=== PATIENT | female | born 1985 | race African-American/Black ===

== ENCOUNTER 2017-09-25 19:32 | Emergency (ER) | payer MEDICAID ==
[2017-09-25 19:40] VITALS: BP 164/95
--- NOTE | 2017-09-25 19:50 | ER Document Report ---
ED General - General Chief Complaint: Urinary Problem Stated Complaint: URINARY PAIN Time Seen by Provider: 09/25/17 19:46 Notes: 32-year-old female here with complaints of dysuria frequency and discomfort with urination for the past few days. She has not taken anything for the symptoms. She denies any fevers chills back/flank pain nausea vomiting diarrhea abdominal pain. She has a history of UTI several years ago. TRAVEL OUTSIDE OF THE [place] IN LAST 30 DAYS: No - Related Data Allergies/Adverse Reactions: No Known Allergies Allergy (Verified 06/26/15 14:32) Past Medical History - Social History Smoking Status: Unknown if Ever Smoked Family History: Reviewed & Not Pertinent - Immunizations Hx Diphtheria, Pertussis, Tetanus Vaccination: No Review of Systems - Review of Systems Notes: See history of present illness for pertinent positive review of systems; otherwise all review of systems have been reviewed and are negative Physical Exam - Vital signs Vitals: Temp Pulse Resp BP Pulse Ox 98.6 F 74 17 164/95 H 100 09/25/17 19:38 09/25/17 19:38 09/25/17 19:38 09/25/17 19:38 09/25/17 19:38 - Notes Notes: PHYSICAL EXAMINATION: GENERAL: Well-appearing and in no acute distress. HEAD: Atraumatic, normocephalic. EYES: Pupils equal round and reactive to light, extraocular movements intact, sclera anicteric, conjunctiva are normal. ENT: nares patent, oropharynx clear without exudates. Moist mucous membranes. NECK: Normal range of motion, supple without lymphadenopathy LUNGS: CTAB and equal. No wheezes rales or rhonchi. HEART: Regular rate and rhythm without murmurs ABDOMEN: Soft, no tenderness. No facial grimacing/wincing upon palpation. No guarding, no rebound. EXTREMITIES: Normal range of motion, no pitting edema. No cyanosis. NEUROLOGICAL: Cranial nerves grossly intact. Normal sensory/motor exams. PSYCH: Normal mood, normal affect. SKIN: Warm, Dry, normal turgor, no rashes or lesions noted Course - Vital Signs Vital signs: Temp Pulse Resp BP Pulse Ox 98.6 F 74 17 164/95 H 100 09/25/17 19:38 09/25/17 19:38 09/25/17 19:38 09/25/17 19:38 09/25/17 19:38 - Laboratory Laboratory results interpreted by me: 09/25/17 19:46 Urine Blood MODERATE H Ur Leukocyte Esterase LARGE H Discharge - Discharge Referrals: JASMYNE LECHUGA MD [ACTIVE STAFF] - Follow up as needed
[2017-09-25 20:26] LABS: APPEARANCE,URINE CLOUDY; BILIRUBIN,URINE NEGATIVE (NEGATIVE); COLOR,URINE YELLOW; GLUCOSE, URINE NEGATIVE (NEGATIVE); KETONES,URINE NEGATIVE (NEGATIVE); LEUKOCYTE ESTERASE,URINE LARGE (NEGATIVE); NITRITE,URINE NEGATIVE (NEGATIVE); PROTEIN,URINE NEGATIVE (NEGATIVE); URINE SPECIFIC GRAVITY 1.008; UROBILINOGEN,URINE NEGATIVE mg/dL (<2.0)
[2017-09-25] MEDS ORDERED: PHENAZOPYRIDINE HCL 200 MG TABLET PO ONE (20:41)
[2017-09-25] MEDS ORDERED: CEPHALEXIN 500 MG CAPSULE PO ONE (20:41)
--- NOTE | 2017-09-25 20:47 | ER Document Report ---
HPI - HPI Patient complains to provider of: dysuria Pain Level: 3 Context: Patient is a 32-year-old female comes emergency department for chief complaint of painful urination since yesterday. She denies abdominal pain, flank pain, fever, vomiting. She denies any other complaints. She does not get urinary tract infections frequently. She denies any vaginal bleeding or discharge. - CONSTITUTIONAL Constitutional: DENIES: Fever, Chills - URINARY Urinary: REPORTS: Urgency, Frequency - REPRODUCTIVE Reproductive: REPORTS: : Past Medical History - General Information source: Patient - Social History Smoking Status: Never Smoker Frequency of alcohol use: None Drug Abuse: None Lives with: Family Family History: Reviewed & Not Pertinent Patient has suicidal ideation: No Patient has homicidal ideation: No - Medical History Medical History: Negative Renal/ Medical History: Denies: Hx Peritoneal Dialysis Surgical Hx: Negative - Immunizations Hx Diphtheria, Pertussis, Tetanus Vaccination: Yes Vertical Provider Document - CONSTITUTIONAL General Appearance: WD/WN, No Apparent Distress - INFECTION CONTROL TRAVEL OUTSIDE OF THE [place] IN LAST 30 DAYS: No - HEENT HEENT: Atraumatic, Normocephalic - NECK Neck: Normal Inspection - RESPIRATORY Respiratory: Breath Sounds Normal, No Respiratory Distress - CARDIOVASCULAR Cardiovascular: Regular Rate, Regular Rhythm - GI/ABDOMEN Gastrointestinal: Abdomen Soft, Abdomen Non-Tender. negative: Abdomen Tender, Abdominal Guarding - BACK Back: Normal Inspection. negative: CVA Tenderness-Right, CVA Tenderness-Left - MUSCULOSKELETAL/EXTREMETIES Musculoskeletal/Extremeties: MAEW, FROM, Non-Tender - NEURO Level of Consciousness: Awake, Alert, Appropriate Course - Re-evaluation Re-evalutation: Patient complaining of dysuria, urinalysis is consistent with urinary tract infection, hCG is negative. Abdomen is completely benign. Vital signs show mild hypertension, otherwise unremarkable. Patient is very well-appearing on exam. No CVA tenderness, no fever, no vomiting. Starting on antibiotics, discussed follow-up and return precautions, patient states understanding and agreement. - Vital Signs Vital signs: Temp Pulse Resp BP Pulse Ox 98.6 F 74 17 164/95 H 100 09/25/17 19:38 09/25/17 19:38 09/25/17 19:38 09/25/17 19:38 09/25/17 19:38 - Laboratory Laboratory results interpreted by me: 09/25/17 19:46 Urine Blood MODERATE H Ur Leukocyte Esterase LARGE H Discharge - Discharge Clinical Impression: Dysuria Urinary tract infection Qualifiers: Urinary tract infection type: site unspecified Hematuria presence: without hematuria Qualified Code(s): N39.0 - Urinary tract infection, site not specified Condition: Stable Disposition: HOME, SELF-CARE Additional Instructions: Your symptoms and tests are consistent with a urinary tract infection. Take antibiotics as prescribed. Take Pyridium if needed for symptoms. Follow-up with primary care. Your blood pressure needs to be routinely rechecked for additional management. Return for any concerning symptoms including severe pain , vomiting, fever, or any other concerning or worsening symptoms. Prescriptions: Cephalexin Monohydrate [Keflex 500 mg Capsule] 500 mg PO BID #10 capsule Phenazopyridine HCl [Pyridium 200 mg Tablet] 200 mg PO TID #9 tablet Referrals: JASMYNE LECHUGA MD [ACTIVE STAFF] - Follow up as needed
== END 2017-09-25 21:18 | disposition home or self-care (01) ==
LOC: ER 19:32
DX: N39.0 Urinary tract infection, site not specified (principal); I10 Essential (primary) hypertension
CPT/HCPCS: 99283; 81025; 81001; J3490